=== PATIENT | female | born 1935 | race Caucasian/White ===

== ENCOUNTER → 2022-06-23 | Outpatient (CLI) | payer OTHER ==
[~2022-06-23] VITALS: Ht 157.5 cm; Wt 61.7 kg
== END ==
LOC: EROP 15:51
DX: U07.1 COVID-19 (principal)
CPT/HCPCS: M0222; Q0222

== ENCOUNTER 2022-07-08 18:43 | Emergency (ER) | payer OTHER ==
[~2022-07-08] VITALS: Ht 157.5 cm; Wt 54.4 kg
[2022-07-08 19:37] LABS: HEMOGLOBIN 14.4 gm/dl (12.3-15.3); RED BLOOD COUNT 4.35 M/UL (4.00-5.10); WHITE BLOOD COUNT 16.3 K/UL (4.5-11.0)
[2022-07-09] MEDS ORDERED: ONE-A-DAY WOME1 EAC5 PO (09:53)
[2022-07-09] MEDS ORDERED: VITAMIN D325 MCG PO (09:54)
[2022-07-09 10:39] LABS: RED BLOOD COUNT 4.01 M/UL (4.00-5.10); WHITE BLOOD COUNT 13.7 K/UL (4.5-11.0)
[2022-07-10 04:42] LABS: RED BLOOD COUNT 3.98 M/UL (4.00-5.10); WHITE BLOOD COUNT 14.8 K/UL (4.5-11.0)
== END 2022-07-10 23:06 | disposition short-term general hospital (02) ==
LOC: ER1 18:43 → CDU 20:50 → ER1 07-10 23:06
PROVIDERS: Internal Medicine; Student in an Organized Health Care Education/Training Program
DX: U07.1 COVID-19 (principal); J12.82 Pneumonia due to coronavirus disease 2019; N17.9 Acute kidney failure, unspecified; E86.0 Dehydration; E87.0 Hyperosmolality and hypernatremia; I21.4 Non-ST elevation (NSTEMI) myocardial infarction; R13.10 Dysphagia, unspecified; I48.91 Unspecified atrial fibrillation; Z86.39 Personal history of other endocrine, nutritional and metabolic disease; Z86.73 Personal history of transient ischemic attack (TIA), and cerebral infarction without residual deficits
CPT/HCPCS: 36600; 70450; 70490; 71045; 71250; 80053; 81001; 82550; 82553; 82803; 83605; 83735; 83880; 84100; 84439; 84443; 84484; 85025; 85610; 85730; 86140; 87040; 87086; 93005; 96374; 96375; 99285; C9113; J1450; J1644; J2185; J2310; U0002